=== PATIENT | male | born 1975 | race Caucasian/White ===

== ENCOUNTER 2020-05-12 08:56 | Outpatient (CLI) | payer OTHER ==
--- NOTE | 2020-05-12 10:08 | MRI ---
MR the lumbar spine without contrast: 05/12/2020 History: Lumbar radiculopathy, low back pain radiating into bilateral legs with lower extremity numbn ess COMPARISON: 09/13/2016 TECHNIQUE: Multiplanar multisequence MR images were obtained of lumbar spine without IV contrast FINDINGS: On the basis of 5 lumbar type vertebral bodies, conus medullaris terminates at [id number] level. Sagittal STIR imaging demonstrates degenerative edematous endplate change at the L5-S1 level laterall y on the left, progressed since the prior exam. T12-L1:Mild bilateral facet hypertrophy with no central canal or neural foraminal stenosis. L1-2:Unremarkable. L2-3:Mild bilateral facet hypertrophy with no central canal or neural foraminal stenosis. L3-4:Mild bilateral facet hypertrophy with no central canal or neural foraminal stenosis. L4-5:There is mild bilateral facet hypertrophy and hypertrophy of the ligamentum flavum. There is an annular tear in the left foraminal region. There is mild stable central canal stenosis. No significant neural foraminal stenosis. L5-S1: Anterior and left lateral osteophyte formation. Bilateral facet hypertrophy and hypertrophy of the ligamentum flavum with small volume fluid within bilateral facet joints. Disc space narrowing with disc desiccation, disc bulge, and small central disc protrusion with associated annular tear. Th ere is mild central canal stenosis, similar when compared to prior imaging. There is moderate/severe left and moderate right neural foraminal stenosis, similar when compared to prior yasmani ging. Image retroperitoneal structures demonstrateno acute findings. IMPRESSION: Relatively stable lumbar spine degenerative change aside from interval progression of degenerative en dplate disease laterally on the left at L5-S1.
== END 2020-05-12 08:57 | disposition home or self-care (01) ==
LOC: BICMRI 08:56
PROVIDERS: ATTEND Neurological Surgery
DX: M48.062 Spinal stenosis, lumbar region with neurogenic claudication (principal); M47.26 Other spondylosis with radiculopathy, lumbar region; M47.27 Other spondylosis with radiculopathy, lumbosacral region
CPT/HCPCS: 72148

== ENCOUNTER 2020-11-24 07:31 | Outpatient (CLI) | payer OTHER ==
[2020-11-24 10:21] LABS: Hemoglobin 16.3 g/dL (13.5-17.5); Mean Corpuscular HGB CONC 33.5 g/dL (32.0-36.0); Mean Corpuscular Hemoglobin 31.7 pg (27.0-33.0); Mean Corpuscular Volume 94.6 fl (81.2-95.1); Mean Platelet Volume 11.8 fl (7.4-10.4); Platelet Count 296 10x3/uL (150-450); Red Blood Cell (RBC) Count 5.15 10x6/uL (4.32-5.72); White Blood Cell (WBC) Count 14.3 10x3/uL (3.5-10.5)
[2020-11-24 11:38] LABS: Anion Gap 16 mmol/L (10-20); BUN (Urea Nitrogen) 7 mg/dL (8.9-20.6); Calc. Creatinine Clearance 0 mL/min (70-130); Calcium 10.4 mg/dL (7.8-10.44); Carbon Dioxide 24 mmol/L (22-29); Chloride 105 mmol/L (98-107); Glucose 74 mg/dL (70-105); Potassium 4.6 mmol/L (3.5-5.1); Sodium 140 mmol/L (136-145)
[2020-11-25 00:23] LABS: SARS-CoV-2 PCR by NAA Not Detected (NotDetected)
== END 2020-11-24 07:32 | disposition home or self-care (01) ==
LOC: LABBT 07:31
PROVIDERS: ATTEND Neurological Surgery
DX: Z01.818 Encounter for other preprocedural examination (principal); Z20.822 Contact with and (suspected) exposure to COVID-19
CPT/HCPCS: 80048; 85027; 93005; 93010; U0003; U0005

== ENCOUNTER 2020-11-27 06:10 | Day surgery (SDC) | payer OTHER ==
[2020-11-24 10:33] VITALS: BMI 29.2
[2020-11-27] MEDS ORDERED: Lidocaine 2% Jelly 5 ML TUBE ONE (06:42)
[2020-11-27] MEDS ORDERED: Fentanyl 100 MCG/2 ML VIAL ONE (06:42)
[2020-11-27] MEDS ORDERED: Ondansetron PF 4 MG/2 ML Vial ONE (08:41)
[2020-11-27] MEDS ORDERED: Rocuronium Bromide 10 MG/ML (10ML VIAL) ONE (08:41)
[2020-11-27] MEDS ORDERED: Glycopyrrolate 0.2 MG/ML 5 ML SYRINGE ONE (08:41)
[2020-11-27] MEDS ORDERED: Lidocaine 1% PF 5 ML VIAL ONE (08:41)
[2020-11-27] MEDS ORDERED: Dexamethasone 20 MG/5 ML VIAL ONE (08:41)
[2020-11-27] MEDS ORDERED: PROPOFOL 200 MG/20 ML VIAL ONE (08:41)
[2020-11-27] MEDS ORDERED: Tamsulosin HCl 0.4 MG CAP ONE (11:33)
[2020-11-27] MEDS ORDERED: HYDROcodone/Acetaminophen 5/325 mg Tablet ONE (11:34)
== END 2020-11-27 12:18 | disposition home or self-care (01) ==
LOC: SDC 06:10
PROVIDERS: ATTEND Neurological Surgery
PROC: 0SG30AJ Fusion of Lumbosacral Joint with Interbody Fusion Device, Posterior Approach, Anterior Column, Open Approach (ICD-10-PCS; principal; 2020-11-27)
DX: M51.17 Intervertebral disc disorders with radiculopathy, lumbosacral region (principal); M48.07 Spinal stenosis, lumbosacral region; Z88.5 Allergy status to narcotic agent; Z88.8 Allergy status to other drugs, medicaments and biological substances
CPT/HCPCS: 76000; C1713; C1768; J0690; J1100; J2405; J2704; J3010; J3370

== ENCOUNTER 2020-12-13 12:31 | Outpatient (CLI) | payer OTHER | END 2020-12-13 12:32 | disposition home or self-care (01) | LOC: TBSIIMAG 12:31 | PROVIDERS: ATTEND Neurological Surgery | DX: M47.27 Other spondylosis with radiculopathy, lumbosacral region (principal); Z98.890 Other specified postprocedural states | CPT/HCPCS: 72100 ==